=== PATIENT | male | born 1945 | race Caucasian/White ===

== ENCOUNTER → 2019-02-08 08:57 | Outpatient (CLI) | payer MEDICARE, OTHER, SELFPAY ==
--- NOTE | 2019-02-08 | DI.MRI.S_ITS ---
PROCEDURE: MR KNEE LT WO CON INDICATIONS: PAIN IN LEFT KNEE TECHNIQUE: Saeed-Nephew Visionaire protocol was performed. Noncontrast sagittal PD fast spin echo and T2 fast spin echo with fat saturation, sagittal 3-D FLASH with fat saturation; coronal T1 spin echo and PD fast spin echo with fat saturation, and axial PD fast spin echo with fat saturation through the knee. COMPARISON: [facility], CR, BONE LENGTH SCANOGRAM, 06/27/2011, 13:42. [facility], CR, XR KNEE ARTHRITIC SERIES BI, 01/30/2019, 8:27. FINDINGS: Image quality: Excellent. Menisci: Extensive circumferential tear involving the lateral meniscus with very little normal substance identified. There is extrusion of meniscal fragments and adjacent soft tissue edema. Medial meniscal tear involving the body and posterior horn with extension of abnormal signal to the undersurface. Cruciate ligaments: Anterior cruciate ligament not well visualized and likely ruptured although this may be a chronic finding. The posterior cruciate ligament appears intact Medial structures: The medial collateral ligament appears intact, although medially bowed. This may be related to medial compartment pathology. The posterior oblique ligament, semimembranosus tendon insertions, oblique popliteal ligament, and meniscocapsular junction appear intact. Visualized portions of the pes anserinus tendons appear normal. No abnormal bursal fluid. Lateral structures: The lateral collateral ligament, long and short heads of the biceps femoris tendon appear intact. The popliteus tendon appears normal; the popliteofibular ligament appears intact. The posterosuperior and anteroinferior popliteomeniscal fascicles appear intact. The arcuate and fabellofibular ligaments appear intact, on either side of the lateral inferior geniculate artery. Iliotibial band appears normal. Anterior structures: The quadriceps tendon intact. There is proximal and distal patellar tendinopathy, mild. Prepatellar and superficial infrapatellar subcutaneous edema/fluid. Patellar alignment is normal. No femoral trochlear dysplasia or ventral trochlear prominence. No edema in the infrapatellar fat pad. Bones and cartilage: No focal marrow contusion or discrete low signal fracture line. There is presumed prominent intraosseous ganglion cyst formation at the tibial eminence. Inferior to that, there is focal central medullary marrow signal changes, possibly related to bone infarct. It measures 2.4 x 1.7 cm on coronal image 18 series 9. This may be present as subtle sclerosis seen on the prior 06/27/11 radiograph although technically indeterminate and consider continued surveillance with dedicated knee radiographs. Within the medial compartment, diffuse partial-thickness loss and internal signal change of the femoral and tibial articular cartilage. There is extensive subchondral cystic change and marrow edema at the peripheral medial tibial plateau. Within the lateral compartment, full-thickness loss of the femoral and tibial articular cartilage. Within the patellofemoral compartment, diffuse partial-thickness loss and prominent surface fraying/fibrillation of the patellar and femoral trochlear cartilage. There is full thickness denudation overlying the median patellar ridge on image 11 series 6. Joint space: Large joint effusion. Perez cyst is noted measuring 3 cm in a cephalocaudad dimension. No definite intra-articular loose body identified. IMPRESSION: Extensive lateral meniscal tear, with extrusion of meniscal fragments and associated soft tissue edema. Medial meniscal undersurface tear involving the body and posterior horn. Rupture of anterior cruciate ligament although probably chronic finding. Severe degenerative joint disease, most pronounced in the lateral compartment where there is full-thickness articular cartilage loss. Extensive subchondral cystic change and marrow edema at the peripheral medial tibial plateau. Presumed bone infarct involving the proximal tibial plateau. Consider radiographic surveillance to document long-term stability. Although, this is a subtle finding not well-seen on the prior studies. Large joint effusion. Perez's cyst. Dictated by: Maurice Lange M.D. on 02/08/2019 at 10:48 Approved by: Maurice Lange M.D. on 02/08/2019 at 11:05
== END ==
PROVIDERS: Visit Provider Orthopaedic Surgery
DX: M25.562 Pain in left knee (principal); S83.282A Other tear of lateral meniscus, current injury, left knee, initial encounter; S83.242A Other tear of medial meniscus, current injury, left knee, initial encounter; S83.512A Sprain of anterior cruciate ligament of left knee, initial encounter; M17.12 Unilateral primary osteoarthritis, left knee; M25.462 Effusion, left knee; M71.22 Synovial cyst of popliteal space [Baker], left knee
CPT/HCPCS: 73721

== ENCOUNTER → 2019-06-17 11:42 | Outpatient (CLI) | payer MEDICARE, OTHER, SELFPAY ==
[2019-06-17 12:10] LABS: Hematocrit 42.9 % (41-53); Hemoglobin 14.2 g/dL (13.5-17.5); Mean Corpuscular HGB Conc 33.1 % (30-36); Mean Corpuscular Hemoglobin 29.1 PG (26-34); Mean Corpuscular Volume 87.7 fL (80-100); Platelet Count 206 X10^3/uL (150-400); Red Blood Cell Count 4.89 X10^6/uL (4.5-5.9); Red Cell Distribution Width 14.6 % (11.6-14.8); White Blood Cell Count 4.9 X10^3/uL (4.5-11.0)
[2019-06-17 12:25] LABS: Hemoglobin A1C% w Est Avg Glu 5.7 % (4.0-6.0)
[2019-06-17 12:36] LABS: BUN Creatinine Ratio 44.3 (6-22); Blood Urea Nitrogen 31 mg/dL (9-20); Carbon Dioxide 23 mmol/L (22-32); Chloride 109 mmol/L (98-107); Estimated Glomerular Filt Rate > 60.0 mL/min (>60); Glucose 129 mg/dL (80-110); HEMOLYSIS < 15 (0-50); Potassium 4.7 mmol/L (3.4-5.1); Sodium 141 mmol/L (137-145)
[2019-06-17 14:50] LABS: Bacteria Urine None Seen
[2019-06-17 15:25] LABS: Appearance Urine UA CLEAR; Bilirubin Urine UA NEGATIVE (NEGATIVE); Color Urine UA YELLOW; Glucose Urine UA NEGATIVE (Negative); Ketones Urine UA NEGATIVE (NEGATIVE); Leukocyte Esterase Urine UA NEGATIVE (NEGATIVE); Nitrite Urine UA NEGATIVE (Negative); Occult Blood Urine UA 1+ (Negative); Protein Urine UA NEGATIVE (Negative); Urobilinogen Urine UA 0.2 E.U./dL (0.2)
[2019-06-17 16:36] LABS: RBC Urine 0-1/HPF (0-5/HPF); Squamous Epithelial Cell Urine 0-1 /HPF (0-5/HPF); WBC Urine 0-1/HPF (0-5/HPF)
== END ==
PROVIDERS: Visit Provider Orthopaedic Surgery
DX: N39.0 Urinary tract infection, site not specified (principal); R73.9 Hyperglycemia, unspecified; Z01.818 Encounter for other preprocedural examination
CPT/HCPCS: 36415; 80048; 81001; 83036; 85027; 93005; 93010

== ENCOUNTER 2019-07-04 05:47 | Inpatient (IN) | payer MEDICARE, OTHER, SELFPAY ==
[2019-06-20 08:23] VITALS: BMI 31.2
[2019-07-04] VITALS (16 sets, daily range): BP systolic 105–147; BP diastolic 53–75; PULSE 43–68; RESP 12–20; TEMP 35.7–37.3; O2SAT 94–98; BMI 31.2; BMI 32.0
--- NOTE | 2019-07-04 06:00 | DI.RAD.S_ITS ---
PROCEDURE: XR KNEE LT 1TO2V INDICATIONS: POST OPERATIVE LEFT KNEE TECHNIQUE: 2 view(s) of the knee acquired. COMPARISON: None. FINDINGS: Bones: Patient is status post knee joint arthroplasty. Hardware components are in expected positions. Visualized bony structures are intact. Soft tissues: Overlying postoperative changes are noted. Surgical drain is noted in suprapatellar joint space. IMPRESSION: Post surgical changes from left total knee arthroplasty with anatomic left knee alignment. Dictated by: Cody Kwok M.D. on 07/04/2019 at 11:21 Approved by: Cody Kwok M.D. on 07/04/2019 at 11:22
[2019-07-04] MEDS: VANCOMYCIN 1,000 MG/200 ML PIGGYBACK 200 MG IV (07:00)
[2019-07-04] MEDS: LACTATED RINGERS 1,000 ML 42 ML IV ×2 (07:00→08:58)
[2019-07-04] MEDS: PREGABALIN 75 MG CAPSULE PO (07:04)
--- NOTE | 2019-07-04 07:36 | PM.PREOP ---
Pre-operative Note Interval Note History & Physical reviewed/Exam performed by Physician: Yes Changes to H&P: No
--- NOTE | 2019-07-04 07:40 | P.OP_ITS ---
Operative Date/Time/Diagnoses Date of procedure: 07/04/19 Time of procedure: 07:54 Pre-op diagnosis: left knee OA Post-op diagnosis: same Procedure & Clinicians Procedure: left total knee arthroplasty Same procedure as scheduled: Yes Indications: The patient has had progressively worsening left knee pain with radiographic changes consistent with arthritis. Non-operative management has failed and the patient has requested total knee replacement. The risks, benefits and alternatives to surgery were discussed with the patient prior to proceeding. Risks discussed included, but were not limited to, failure to relieve pain, stiffness, infection, nerve damage, deep venous thrombosis, pulmonary embolism, stroke, coma, heart attack, permanent paralysis and , as well as the potential need for eventual revision of the prosthetic. Surgeon: Carly Saeed Wet Room Worker: Suha Tolentino Anesthesia Type: General and Spinal Operative Notes Findings: Severe left knee osteoarthritis, good stability Closure Type: primary Specimen(s): none sent Prosthetic devices, grafts, tissues, transplants, or devices: Saeed and Nephew Ariannaney BCS 2 size 6 femur, size 6 tibia, +9 poly, 35 oval patella Applied: drain(s) Estimated Blood Loss (mL): 250 Blood products transfused: none Tourniquet time (min): 91 Procedure in detail: The patient was seen in the pre-operative area, where the patient identified the left knee as the operative site and this was marked with my initials. The patient received pre-operative antibiotics, and was taken to the operating room and placed on the operative table in the supine position. After satisfactory anesthesia, a real time operator out was performed. The left leg was encircled with a tourniquet about the proximal thigh, and the leg was prepared from the toes to the tourniquet with ChloroPrep in the usual fashion and draped through sterile drapes. The leg was elevated and exsanguinated with Eschmark bandage and the tourniquet inflated to [250] mmHg pressure. The knee was approached through an approximately 18 cm incision centered over the patella and carried into the knee through a medial parapatellar arthrotomy. A portion of the medial and lateral meniscus was resected. Soft tissue was carefully mobilized around the patella the patella was measured with a caliper. Bone was resected from the patella and the patellar height was reconstituted with up an appropriate sized patellar component. A cover was then placed on the patella. A small amount of additional medial and lateral meniscus was resected. The visionare guide fit well to the distal femur. It looked like an appropriate distal femoral cut and the cut was made without difficulty. The rotation was assessed and the appropriate size femoral guide was placed on the distal femur and finishing cuts were made. There was no evidence of notching. The anterior, posterior and chamfer cuts were then made. The posterior osteophytes and soft tissues were then removed. The posterior capsule was injected with part of a mixture of 60 ml 0.25% Marcaine mixed with 20 ml Exparel for post operative pain control. The remainder of this mixture was injected into the capsule and subcutaneous tissues during cement curing. The tibia was prepared and the visionaire guide fit well to the distal tibia. The rotation was assessed. The patient was placed in extension residual medial and lateral meniscus as well as any residual bone was carefully resected. [2mm] additional tibia was resected. Hemostasis was achieved especially posteriorly. Additional local was injected into the posterior capsule. The extension gap was assessed and additional releases for gap balancing were performed as necessary. It was checked with the gap roll or tape edge machine operator. The femoral component was trial was placed and the notch was finished. Trial tibial and femoral components were then placed and the knee placed through a range of motion. Range of motion was [0-120], with good stability throughout the range. The trials were then removed, and the tibia was finished. The bone was prepared with pulsatile lavage, and dried with a sponge. Cement was applied and the final prosthetics placed. Excess cement was removed during and after cement curing. A brief Betadine soak was performed. After confirming there was no extruded cement posteriorly, the final tibial insert was placed. The knee was copiously irrigated and the tourniquet deflated. Hemostasis was obtained with the Bovie. A drain was placed and brought out superolaterally. The capsule was closed with interrupted Vicryl suture. The subcutaneous layer was closed with barbed sutures, and the skin with a running 3-0 V-Lock suture and Surgical glue. An Aquacel Ag dressing was applied and the patient was taken to recovery having tolerated the procedure well. Complications: none Post-operative Condition: stable Disposition: Acute Care Plan for aftercare: The patient will be maintained on a standard total knee replacement protocol with weight bearing as tolerated. The patient will receive aspirin and sequential compression devices for DVT prophylaxis. The patient will be discharged home when safe for the home environment.
--- NOTE | 2019-07-04 07:46 | SUR.PREOP ---
INR ordered, dr richardson instructed not to be done.
[2019-07-04] MEDS: CEFAZOLIN 2 GM/100 ML FROZ.PIGGY IV ×3 (08:00→23:36)
--- NOTE | 2019-07-04 08:24 | SUR.OPER ---
Supine on padded OR bed. Pillow under head, arms secured on padded armboards <90 degree abduction. Safety belt across torso. Non-operative leg secured with tape over blanket over lower leg. Operative leg secured in DeMayo/Sabino positioner. Foam padded brace at thigh of operative leg.
[2019-07-04] MEDS: BUPIVACAINE 0.25% W/ EPI 30 ML VIAL 60 ML INJ (08:31)
[2019-07-04] MEDS: BUPIVACAINE LIPOSOME 266 MG/20 ML VIAL INJ (08:33)
--- NOTE | 2019-07-04 11:38 | SUR.PHASEI ---
Pt transferred to room 205 via bed with all belongings. Last vital signs stable and pain controlled prior to transfer; see flowsheet documentation for details.Report given to SEE Mosquera prior to transfer. Shelbi at bedside upon arrival to room 205; handoff assessment completed. SEE Mosquera to assume care of pt at this time.
[2019-07-04] MEDS: LACTATED RINGERS 1,000 ML 125 ML IV ×2 (12:15→22:26)
--- NOTE | 2019-07-04 12:30 | PC.NURSE ---
Patient brought from PACU via bed at 1138. Patient tolerated transfer well. Denies pain, SOB, at this time. Stating 97% on room air. Patient is communicative and easily awoken. Hemovac unclamped at 1230, draining and patent. LLE dsg is CDI, no swelling or redness noted. Distal pulses are faint but palpable. Denies further needs at this time. at bedside.
[2019-07-04] MEDS: ACETAMINOPHEN 325 MG TABLET 975 MG PO ×2 (14:39→20:05)
[2019-07-04] MEDS: ONDANSETRON 4 MG/2 ML INJ IV (14:40)
--- NOTE | 2019-07-04 15:04 | PT.IIE ---
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) Medical History (Last Updated 06/20/19 @ 08:54 by Erendira Gaspar RN) Arthritis (Acute) Chest pain (Acute) First degree AV block (Acute) GERD (gastroesophageal reflux disease) (Acute) H/O tooth extraction (Acute) HTN (hypertension) (Acute) Incomplete right bundle branch block (RBBB) (Acute) NSTEMI (non-ST elevated myocardial infarction) (Acute) Osteoarthritis (Acute) Pain (Acute) Postoperative atrial fibrillation (Acute) PSVT (paroxysmal supraventricular tachycardia) (Acute) Severe gum disease (Acute) Sinus bradycardia (Acute) TIA (transient ischemic attack) (Acute) Physical Therapy Inpatient Evaluation/Re-Eval M1 PT/OT-IP Prior Functional Status Start: 07/04/19 12:00 Freq: NEEDED Status: Active Protocol: Document 07/04/19 14:35 AW (Rec: 07/04/19 15:04 AW [id number]) Medical Review Prior Functional Status Medical History Reviewed Yes Diet/Fluid Consistency Regular Communication Able to make needs known Mobility and Gait Pt was independent with functional mobility. He needed no assistive device, had no limit to walking distance, and had no falls within the past year. Pt does admit his balance wasn't the best. Activities of Daily Living and IADL's Independent, including driving and gardening Social History Household Members spouse Living Arrangements House Number of Floors (Floors) Two Floors Number of Stairs To Enter/Railing? 3 SANDRA with R rail ascending. Home is split level. Once inside, pt must ascend 6 steps with left-side railing to access the upper level where he can stay as long as needed without need to access the lower level. Home Environment Standard Height Toilet,Walk in Shower Home Equipment Front Wheel Walker,Straight Cane,Manual Wheelchair Employment Status Retired Additional Social History Comment Pt lives with spouse who ambulates short distances and often depends on a manual wheelchair for mobility. His son and grandchild live in [place]. M2 PT-IP Current Condition Start: 07/04/19 12:00 Freq: NEEDED Status: Active Protocol: Document 07/04/19 14:35 AW (Rec: 07/04/19 15:04 AW [id number]) Physical Therapy Current Condition Current Condition Evaluation Date 07/04/19 Treatment Diagnosis s/p L TKA, difficulty in walking Onset Date 07/04/19 Weight Bearing Status Weight Bearing Status Weight Bear as Tolerated Allowed Weight Bearing Amount (enter % WBAT LLE with walker or #) (%) M3 PT-IP Subjective Start: 07/04/19 12:00 Freq: NEEDED Status: Active Protocol: Document 07/04/19 14:35 AW (Rec: 07/04/19 15:04 AW [id number]) Subjective Physical Therapy Visit Type Type Initial Evaluation Visit Start Time 13:52 Visit Stop Time 14:32 Total Visit Minutes 40 Notes Pt resting in room, visiting with spouse. Number of MANAGER USER EXPERIENCE Visits 0 Physical Therapy Visit Comments Patient Comments Pt is agreeable to mobilize with PT Patient Goals Pt would like to discharge home with spouse assist. Therapy Pain Assessment Pain When Pain Assessed During Mobility Pain Present Pain Present Pain Reported Location Left Knee Scale Used pt unable to quantify M4 PT-IP Mobility and Gait Start: 07/04/19 12:00 Freq: NEEDED Status: Active Protocol: Document 07/04/19 14:35 AW (Rec: 07/04/19 15:04 AW [id number]) PT-Bed Mobility Assessment Supine to Sit Supine to Sit Standby Assistance Scooting Scooting to Edge of Bed Standby Assistance PT-Transfer Assessment Sit to and From Stand Sit to and from Stand Minimal Assistance Equipment Transfer Assistive Device Gait Belt,Front Wheeled Walker Orthotic/Prosthetic Devices or Brace: No Transfers Transfer Destination Chair Transfer Technique pt ambulated using FWW Transfer Ability Level of Assist Minimal Assistance Comments Mobility Comments With pt sitting edge of bed, he attempted to stand without assist, resulting in a lateral loss of balance to his left, landing on the bed and requiring PT assist to recover . During this episode, wound vac line mid-line. RN was notified and she was able to reconnect the line with good drainage. Pt required min assist and verbal cues for sequencing to complete sit to stand. Gait Assessment Gait Gait Assistance Required: Contact Guard Assist Distance (Feet) 15 Able to Maintain Weight Bearing Status Yes During Gait Assistive Devices Assistive Device Gait Belt,Front Wheeled Walker Orthotic/Prosthetic Devices or Brace: No Gait Deviations General Gait Pattern Antalgic,Decreased Stride Length,Decreased Feet Clearance,Flexed Trunk,Step-to Gait Factors Limiting Gait Function Factors Limiting Gait Function Decreased Activity Tolerance, Decreased Strength,Pain,Poor Balance,Poor Safety Awareness Comments Gait Comments Pt ambulated ~15 feet in room using FWW CGA. PT-Balance Assessment Sitting Balance and Reactions Static Sitting Balance Ability Good Dynamic Sitting Balance Ability Fair Standing Balance and Reactions Static Standing Balance Ability Fair Dynamic Standing Balance Ability Fair Device Used FWW M5 PT-IP Objective Assessments Start: 07/04/19 12:00 Freq: NEEDED Status: Active Protocol: Document 07/04/19 14:35 AW (Rec: 07/04/19 15:04 AW [id number]) Orientation Orientation/Cognition Level of Alertness Alert Orientation Name,Date,Place,Situation Language Function Ability No Deficits Noted Safety Awareness Understands Safety Issues Memory Description No Deficits Noted Gross Range of Motion Upper Extremity ROM Assessment Within Functional Limits Lower Extremity ROM Assessment Left Impaired Strength Upper Extremity Strength Assessment Within Functional Limits Lower Extremity Strength Assessment Left Impaired Coordination Assessment Gross Coordination Gross Coordination WNL Sensation Assessment Sensation Gross Sensation WNL Comments Sensation Comments Pt identified light touch ochoa points on both LE's with no difference side to side Muscle Tone Muscle Tone WNL Yes M6 PT-IP Treatment Start: 07/04/19 12:00 Freq: NEEDED Status: Active Protocol: Document 07/04/19 14:35 AW (Rec: 07/04/19 15:04 AW [id number]) Physical Therapy Treatment Exercises Exercises Ankle Pumps,Quad Sets,Passive Knee Extension Hang Education Education Provided Precautions,Weight Bearing Status,Post-Op Packet,Safety M7 PT-IP Assessment and Plan Start: 07/04/19 12:00 Freq: NEEDED Status: Active Protocol: Document 07/04/19 14:35 AW (Rec: 07/04/19 15:04 AW [id number]) PT Summary Assessment and Plan Potential Rehabilitation Potential Good Status of Condition at Evaluation Evolving Summary Impairments Pain,ROM,Strength,Balance,Bed Mobility,Transfers,Gait, Activity Tolerance Assessment Summary Pt is a 73 yo man with history of NSTEMI and CABG who was seen for PT eval on POD0 following L TKA. PLOF: Patient reports he was independent with all functional mobility and ADL's but that his balance wasn't the best. He reports no falls in the past year. He lives with his who ambulates short distances and uses a manual wheelchair for longer distance mobility. CLOF : Pt found resting in bed, agreeable to participate with PT. Pt exhibited impulsivity, attempting to transfer without assist. He required SBA for bed mobility, min assist to transfer, and CGA for ambulation with FWW. Given pt' s level of debility compared with PLOF, he may benefit from SNF rehab before anticipated return to home. However, pt's function could drastically improve on POD1, so PT will continue to assess. Pt left reclined in bedside chair with ice pack on left knee, BP cuff and oximeter in place, and call light within reach. He was educated to use the call light for all mobility needs. Goals Bed Mobility Goal Independent Transfer Goal Standby Assistance Gait Goal Standby Assistance Gait Distance 100 Other Goals up/down 6 steps with L-side railing SBA. Frequency of Treatment Frequency Of Treatment Twice a Day Treatment Plan Physical Therapy Treatment Plan Bed Mobility Training,Transfer Training,Gait Training, Therapeutic Exercise,Balance Retraining,Post Op Education, Discharge Planning,Hot or Cold Pack,Neuromuscular Re-ed, Coordination Retraining,Manual Therapy Recommendations To Nursing Amount of Assist Needed 1 Person Assist Discharge Recommendations PT Discharge Recommendations Home with Assistance,SNF Rehab ,Outpatient PT Other Discharge Recommendations SNF rehab vs home with assist + outpatient PT. Will continue to assess.
--- NOTE | 2019-07-04 15:18 | CM.DPNOTE ---
DCP assessment note: initiated. Case receive this morning and discussed briefly in Team Rounds. Pt was in surgery for planned knee surgery. INPT admission status has now been confirmed by UR RN Miriam. Discussed caseload triage with assistant center manager Mya this afternoon. She and her cad intern plan to see pt and his tomorrow to continue the full assessment process and look at the d/c plan issues and options.
[2019-07-04] MEDS: OXYCODONE IR 5 MG TABLET PO (20:06)
[2019-07-04] MEDS: METOPROLOL IR 50 MG TABLET PO (20:06)
[2019-07-04] MEDS: ATORVASTATIN 20 MG TABLET 80 MG PO (20:06)
[2019-07-04] MEDS: DOCUSATE 100 MG CAPSULE PO (20:07)
[2019-07-04] MEDS: ASPIRIN EC 81 MG TABLET PO (20:07)
[2019-07-04] MEDS: OXYCODONE IR 10 MG TABLET PO (23:36)
--- NOTE | 2019-07-05 00:03 | PC.NURSE ---
Addendum entered by Paige Edwards R.N. 07/05/19 07:06: When checked on, patient lying quietly with no indication of pain but when asked states pain is not any better; still 6/10 if not worse. Addendum entered by Paige Edwards R.N. 07/05/19 05:55: 0530 Was up in chair and now wanting to go back to bed. Seems to be a great deal of pain and states Oxycodone given earlier really didn't help the pain much and rates severity now as 6/10. While ambulating around bed, became nauseated and vomited on floor + 50cc in blue emesis bag; undigested food. Able to get back to bed and now lying down. States no longer nauseated but agreeable to taking Zofran prior to pain medication. After Zofran administered was medicated with Oxycodone, leg elevated on pillow and ice pack applied. Addendum entered by Paige Edwards R.N. 07/05/19 02:42: Patient states pain is currently 6/10 so medicated with 10mg Oxycodone. Original Note: Patient is alert and oriented although anxious with many questions regarding what is normal following knee surgery. Breath sounds CTA with RA sat of 95%. HRR. Complains of queasy feeling but denies true nausea and did not want any antiemetic. BT present and is passing flatus. Voiding without dysuria, frequency or urgency. Needing assistance to reposition due to increased pain in left knee. Does get up to bathroom with walker and 1 assist. Pain is currently 8/10 so medicated with 10mg Oxycodone, repositioned and ice pack applied to knee. Aquacel dressing + risa wrap to left LE is CDI. Hemovac is intact and compressed. CMS intact. Does have non pitting edema in bilateral ankles (chronic) left > right. Wearing bilateral SCD's. Fall risk score is moderate; bed alarm is activated for safety. rooming in.
[2019-07-05] MEDS: OXYCODONE IR 10 MG TABLET PO ×2 (02:40→05:46)
[2019-07-05 03:45] VITALS: BP 118/62; PULSE 72; RESP 19; TEMP 37.1; O2SAT 95
[2019-07-05] MEDS: ONDANSETRON 4 MG/2 ML INJ IV (05:41)
[2019-07-05] MEDS: LACTATED RINGERS 1,000 ML 125 ML IV (07:05)
[2019-07-05 07:52] LABS: Hematocrit 37.8 % (41-53); Hemoglobin 12.5 g/dL (13.5-17.5)
--- NOTE | 2019-07-05 08:43 | PM.PNPO.1 ---
Subjective Subjective Date Patient Seen: 07/05/19 Time Patient Seen: 08:43 Interval history: Patient is POD#1 s/p left TKA by Dr. Saeed. He had good control of pain yesterday and mobilized with PT but pain control deteriorated overnight. He has been taking Oxycodone and scheduled Tylenol with little to no pain relief. He had episode of nausea and emesis yesterday which has improved. No chest pain or shortness of breath. Exam Vital Signs (past 8 hours): - 07/05/19 03:45 Temperature 98.7 F Pulse Rate 72 Respiratory Rate 19 Blood Pressure 118/62 Pulse Oximetry 95 Fraction of Inspired Oxygen 21 Oxygen Delivery Method Room Air Oxygen Flow Rate 0 Narrative Exam Narrative: 73 year old male resting in bed. Alert and oriented in no acute distress. Dressing in place over left knee is CDI. Able to flex/extend the ankle. Palpable pedal pulse. Sensation intact to light touch. Calves soft, compressible. Objective Labs Result Diagrams: 07/05/19 06:48 Labs: Laboratory Results - last 24 hr 07/05/19 06:48 Hgb 12.5 L Hct 37.8 L Assessment & Plan Post-op Postoperative Procedures: Procedures Operation Date: 07/04/19 07:45 Actual Procedures Side Surgeon p Total Knee Arthroplasty Left Carly Zulma Saeed MD Plan for today will include improved pain control. Dilaudid 2mg added along with Ketorolac 30mg Q6hrs. He is to continue ASA for DVT prophylaxis. Mobilize with PT today. His is partially wheelchair dependent and he lacks other post operative care so will likely require home health assistance vs SNF rehab.
[2019-07-05 09:00] VITALS: BP 109/54; PULSE 64; RESP 18; TEMP 36.9; O2SAT 92
[2019-07-05] MEDS: ACETAMINOPHEN 325 MG TABLET 975 MG PO ×3 (09:09→21:04)
[2019-07-05] MEDS: FERROUS SULFATE 325 MG TABLET PO (09:09)
[2019-07-05] MEDS: ASPIRIN EC 81 MG TABLET PO ×2 (09:09→21:04)
[2019-07-05] MEDS: METOPROLOL IR 50 MG TABLET PO ×2 (09:09→21:04)
[2019-07-05] MEDS: LISINOPRIL 5 MG TABLET PO (09:10)
[2019-07-05] MEDS: DOCUSATE 100 MG CAPSULE PO ×2 (09:10→21:04)
--- NOTE | 2019-07-05 09:14 | CM.DANOTE ---
DCP: assessment: case received, EMR reviewed. Discussed in Team Rounds. Pt is an 73 year old male who admitted after L knee replacement surgery Admission status: OBS: per UR SEE Pineda Payer: Medicare and Medicaid. Pt isA7) x 4 with at BS. long time resident of [place]. with son/granddaughter in [place] Consulting: [place] Surgeon team: Plan discussed in Team Round: d/c home when adequate pain relief can be established Will check in forpossible pain relief.
[2019-07-05] MEDS: HYDROMORPHONE 2 MG TABLET PO (09:15)
--- NOTE | 2019-07-05 09:35 | PC.NURSE ---
AM shift pt AO and receptive to care. Left PIC infusing LR at 125/hr. Continuing fluids until up and ambulating has increased. pt still having pain control issues. Reported 7/10 pain with 10mg Oxycodone throughout NOC shift. PA ordered Dilaudid 2mg PO and Toradol to start this AM in hopes to gain better pain control. Hemovac compressed. Mild non-pitting swelling to LLE. SCD's on in bed. Using urinal in bed. Denying nausea. Refused PT this AM due to pain (I told PT I just administered 2mg Dilaudid and he will need to get up, PT Kvng stated he will come back).
--- NOTE | 2019-07-05 11:06 | CM.DPC ---
DCP: continued: Case received and discussed in Team Rounds, noted the plan for home with spouse and OUTPT when stable for same. Checked in now with pt and his Valarie, at bedside. Notes her w/c/walker combination. She reports that she uses this when she goes out and it's set up so that my can push it easily. Spoke with ortho ASHIA Borden who is here rounding and had just seen pt and his . She noted she was not sending pt home today and that she thought the plan for home with was not going to be doable. She said if pt was not open to a snf setting at the very least she would sent him with HHS. Discussed ? of OT order as this may help pt and his see more readily what they may face at home. Suha agreed and states will order same. Valarie does say Yesterday he did so well with PT, I thought he would be fine to go. Today he has alot more pain.. Pt very much agrees and is notably groggy from the medication he is on currently. Pt does say he has a son who lives 10 miles away who can pick him up. Asked who would take him to OUTPT PT, planned at [facility] PT but no appt set yet. He said that his would and that his son was not available for this. He said his could not help him get in the car but I thought I wouldn't have any trouble with this. Areas of concern noted in this visit: Pt has stairs, 2 steps to enter with rail and then 6 steps to get to main level of home/bilateral rails. Pt will do stairs and caregiver training with PT Kvng today. Valarie admits that it will be challenging to help her with this if he cannot do it himself. Both at this time say that other than a ride home they do not have anyone lined up to assist other than Valarie. Pt had a stay at [facility] in January 2018 after a Cardiac Bypass surgery. He does not want to consider another snf stay at this time. Valarie does say that my does not get around real well as his back can go out easily. He uses both knees to brace himself when he gets up and down. Discussed HH options and agency choice list. They are not sure they want this. Will discuss further. Suha is updated, says she will be on this weekend and will continue to work with DCP team and pt on a safe discharge plan. She noted that since medication post surgery has worn off pt thus far is not progressing well. DCP team will be following. OF note: Payer: Medicare and [facility]. INPT admission status: confirmed by UR SEE Pineda. He does have options for SNF and HH but as noted will need to be open to same.
[2019-07-05 12:02] VITALS: BP 101/61; PULSE 61; RESP 20; TEMP 36.2; O2SAT 93
--- NOTE | 2019-07-05 12:04 | PT.IPTN ---
Addendum entered by Ilda Putnam LPN 07/05/19 13:04: Was updated by PT Kvng after his session with pt and his that his recommendation was snf rehab, that they were now agreeable to this and wanted a facility other than [facility]. Went now to room in followup. Both said they did not quite understand this, they had not had any time to think about it and were not ready to make any decisions or even discuss snf as a Plan B. Pt did say he thought that he might do much better after he has better pain control and that he already was feeling much better. Plan at this point remains home setting. Options are HHS vs SNF but pt and his are focused on the home plan and are correct that he may improve greatly each day. Pt would not be eligible for a Medicare SNF stay until Saturday 07/07.....DCP team will follow closely. Original Note: Current Diagnoses Unilateral primary osteoarthritis, left knee (07/04/19) Surgery Performed Operation Date: 07/04/19 07:45 Actual Procedures p Total Knee Arthroplasty(Left) - Carly Saeed MD Physical Therapy Treatment Note M2 PT-IP Current Condition Start: 07/04/19 12:00 Freq: NEEDED Status: Active Protocol: Document 07/04/19 14:35 AW (Rec: 07/04/19 15:04 AW [id number]) Physical Therapy Current Condition Current Condition Evaluation Date 07/04/19 Treatment Diagnosis s/p L TKA, difficulty in walking Onset Date 07/04/19 Weight Bearing Status Weight Bearing Status Weight Bear as Tolerated Allowed Weight Bearing Amount (enter % WBAT LLE with walker or #) (%) M3 PT-IP Subjective Start: 07/04/19 12:00 Freq: NEEDED Status: Active Protocol: Document 07/05/19 11:10 HH (Rec: 07/05/19 12:04 HH [id number]) Subjective Physical Therapy Visit Type Type Treatment Note Visit Start Time 11:10 Visit Stop Time 11:40 Total Visit Minutes 30 Physical Therapy Visit Comments Patient Comments Pt is agreeable to mobilize with PT Therapy Pain Assessment Pain When Pain Assessed During Mobility Pain Present Pain Present Pain Reported Location Left Knee Intensity 7 Scale Used Numeric (1 - 10) Description Acute Pain Behaviors Calling Out Pain Management Techniques Apply Cold,Modification of Treatment,Timing of Activity with Medications M4 PT-IP Mobility and Gait Start: 07/04/19 12:00 Freq: NEEDED Status: Active Protocol: Document 07/05/19 11:10 HH (Rec: 07/05/19 12:04 HH [id number]) PT-Bed Mobility Assessment Supine to Sit Supine to Sit Contact Guard Assistance, Bedrails Scooting Scooting to Edge of Bed Contact Guard Assistance Scooting Up and Down in Bed Contact Guard Assistance PT-Transfer Assessment Sit to and From Stand Sit to and from Stand Minimal Assistance,Use of Upper Extremities Equipment Transfer Assistive Device Gait Belt,Front Wheeled Walker Orthotic/Prosthetic Devices or Brace: No Transfers Transfer Destination Bed,Chair Transfer Technique pt ambulated using FWW Transfer Ability Level of Assist Minimal Assistance Comments Mobility Comments Pt has significant difficulty for bed mobility especially pivoting his L knee. Educated pt to perform supine to long sit and use a belt to pivot L LE. Pt did it with CGA but slowly. He also has a hard time scooting towards EOB due to limited knee flexion. Pt was only able to reach 60 degrees knee flexion. He needed min A for STS and transfers by using a stagger stance. He then amb to the hallway for approx 60 feet with CGA. Pt requested to return to chair due to L LE fatigue and pain. Gait Assessment Gait Gait Assistance Required: Contact Guard Assist Distance (Feet) 60 Able to Maintain Weight Bearing Status Yes During Gait Assistive Devices Assistive Device Gait Belt,Front Wheeled Walker Orthotic/Prosthetic Devices or Brace: No Gait Deviations General Gait Pattern Antalgic,Decreased Stride Length,Decreased Feet Clearance,Flexed Trunk,Step-to Gait Factors Limiting Gait Function Factors Limiting Gait Function Decreased Activity Tolerance, Decreased Strength,Pain,Poor Balance,Poor Safety Awareness Comments Gait Comments Pt cont has significant antalgic gait with step to pattern due to pain. He primarily WB through his UEs and R LE. Stair Climbing Assessment Comments Stair Climbing Comments unable to assess PT-Balance Assessment Sitting Balance and Reactions Static Sitting Balance Ability Good Dynamic Sitting Balance Ability Fair Standing Balance and Reactions Static Standing Balance Ability Fair Dynamic Standing Balance Ability Fair Device Used FWW M5 PT-IP Objective Assessments Start: 07/04/19 12:00 Freq: NEEDED Status: Active Protocol: Document 07/04/19 14:35 AW (Rec: 07/04/19 15:04 AW [id number]) Orientation Orientation/Cognition Level of Alertness Alert Orientation Name,Date,Place,Situation Language Function Ability No Deficits Noted Safety Awareness Understands Safety Issues Memory Description No Deficits Noted Gross Range of Motion Upper Extremity ROM Assessment Within Functional Limits Lower Extremity ROM Assessment Left Impaired Strength Upper Extremity Strength Assessment Within Functional Limits Lower Extremity Strength Assessment Left Impaired Coordination Assessment Gross Coordination Gross Coordination WNL Sensation Assessment Sensation Gross Sensation WNL Comments Sensation Comments Pt identified light touch ochoa points on both LE's with no difference side to side Muscle Tone Muscle Tone WNL Yes M6 PT-IP Treatment Start: 07/04/19 12:00 Freq: NEEDED Status: Active Protocol: Document 07/04/19 14:35 AW (Rec: 07/04/19 15:04 AW [id number]) Physical Therapy Treatment Exercises Exercises Ankle Pumps,Quad Sets,Passive Knee Extension Hang Education Education Provided Precautions,Weight Bearing Status,Post-Op Packet,Safety M7 PT-IP Assessment and Plan Start: 07/04/19 12:00 Freq: NEEDED Status: Active Protocol: Document 07/05/19 11:10 HH (Rec: 07/05/19 12:04 HH [id number]) PT Summary Assessment and Plan Potential Rehabilitation Potential Good Status of Condition at Evaluation Evolving Summary Impairments Pain,ROM,Strength,Balance,Bed Mobility,Transfers,Gait, Activity Tolerance Assessment Summary Pt has significant difficulty for bed mobility and needed min A for transfers and CGA for amb. He was overall relatively slow due to significant pain and limited knee flexion (only 60 degrees) . Pt also has a total of 9-10 steps to get on 2nd level which creates high fall risk for him at this point. Pt's spouse also has limited mobility that she might not be able to assist pt as needed. Discussed with pt about my SNF recommendation and they both are more opened to it at this point but requested not to go [facility] in [place]. Notified NEIL Gonsales as well. Goals Bed Mobility Goal Independent Transfer Goal Standby Assistance Gait Goal Standby Assistance Gait Distance 100 Other Goals up/down 6 steps with L-side railing SBA. Frequency of Treatment Frequency Of Treatment Twice a Day Treatment Plan Physical Therapy Treatment Plan Bed Mobility Training,Transfer Training,Gait Training, Therapeutic Exercise,Balance Retraining,Post Op Education, Discharge Planning,Hot or Cold Pack,Neuromuscular Re-ed, Coordination Retraining,Manual Therapy Recommendations To Nursing Amount of Assist Needed 1 Person Assist Discharge Recommendations PT Discharge Recommendations SNF Rehab
[2019-07-05] MEDS: KETOROLAC 30 MG/ML VIAL IV ×2 (13:49→18:51)
[2019-07-05] MEDS: HYDROMORPHONE 2 MG TABLET 4 MG PO ×2 (13:50→18:51)
--- NOTE | 2019-07-05 16:27 | OT.IP.EVAL ---
Current Diagnoses Unilateral primary osteoarthritis, left knee (07/04/19) Surgery Performed Operation Date: 07/04/19 07:45 Actual Procedures p Total Knee Arthroplasty(Left) - Carly Saeed MD Past Medical History (Last Updated 06/20/19 @ 08:54 by Erendira Gaspar, RN) Arthritis (Acute) Chest pain (Acute) First degree AV block (Acute) GERD (gastroesophageal reflux disease) (Acute) H/O tooth extraction (Acute) HTN (hypertension) (Acute) Incomplete right bundle branch block (RBBB) (Acute) NSTEMI (non-ST elevated myocardial infarction) (Acute) Osteoarthritis (Acute) Pain (Acute) Postoperative atrial fibrillation (Acute) PSVT (paroxysmal supraventricular tachycardia) (Acute) Severe gum disease (Acute) Sinus bradycardia (Acute) TIA (transient ischemic attack) (Acute) Surgical History (Last Updated 06/20/19 @ 08:54 by Erendira Gaspar RN) History of colonoscopy (Acute) Hx of arthroscopy of left knee (Acute) Hx of arthroscopy of right knee (Acute 06/06/96) Hx of heart artery stent (Acute 04/16/12) 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 He needed no assistive device, had no limit to walking distance, and had no falls within the past year. Pt does admit his balance wasn't the best. Activities of Daily Living and IADL's Independent, including driving and gardening Social History Household Members spouse Living Arrangements House Number of Floors (Floors) Two Floors Number of Stairs To Enter/Railing? 3 steps to enter the home then 6 steps up to the main part of the house. Railing on R assending. Home Environment Standard Height Toilet,Walk in Shower Home Equipment Front Wheel Walker,Straight Cane,Shower Seat with Backrest Employment Status Retired M2 OT-IP Current Condition Start: 07/05/19 16:06 Freq: Status: Active Protocol: Document 07/05/19 16:08 CGR (Rec: 07/05/19 16:27 CGR [id number]) Occupational Therapy Current Condition Current Condition Evaluation Date 07/05/19 Treatment Diagnosis L TKA Diagnosis Onset Date 07/04/19 Weight Bearing Status Weight Bearing Status Full Weight Bearing M3 OT- IP Subjective and Pain Start: 07/05/19 16:06 Freq: Status: Active Protocol: Document 07/05/19 16:08 CGR (Rec: 07/05/19 16:27 CGR [id number]) OT- Subjective Occupational Therapy Visit Type Type Initial Evaluation Visit Start Time 13:50 Visit Stop Time 14:44 Total Visit Minutes 54 OT Pain Assessment Pain When Pain Assessed At Rest Pain Present Pain Present Pain Reported Location Left Knee Intensity 6 Scale Used Numeric (1 - 10) Management Techniques Modification of Treatment M4 OT- IP ADL's Start: 07/05/19 16:06 Freq: Status: Active Protocol: Document 07/05/19 16:08 CGR (Rec: 07/05/19 16:27 CGR [id number]) OT [id number] Comments OT Self-Feeding Comments Not meal time OT ADL-Grooming General Evaluation Grooming Ability Standby Assistance Areas Needing Assistance Retrieving/Set-up of Grooming Items Comments OT Grooming Comments washing hands OT ADL-Oral Care Comments Oral Care Comments Pt declined, states he already performed. OT ADL-Dressing General Eval Upper Body Dressing Ability Independent Lower Body Dressing Ability Standby Assistance Areas Needing Assistance Underpants/Brief,Pants/Shorts, Socks Assistive Devices Dressing Assistive Devices Long Handled Shoe Horn,Manager Creative ,Sock Aid Comments OT Dressing Comments Pt educated on hip kit and performed donning socks to BLE with the use of the sock aid and solar manager. OT ADL-Toileting General Evaluation Toileting Ability Standby Assistance Devices Toileting Assistive Devices Grab Bars Comments OT Toileting Comments Standing at toilet, educated on pushing walker over the toilet for safety with standing toileting. OT ADL-Bathing Comments OT Bathing Comments Not performed on this date. M5 OT- IP IADL's Start: 07/05/19 16:06 Freq: Status: Active Protocol: Document 07/05/19 16:08 CGR (Rec: 07/05/19 16:27 CGR [id number]) OT-Instrumental Activities of Daily Living Deficits IADL Deficits Identified No Deficits Home Safety Awareness Awareness of Need for Assistance at Home Good Awareness Ability to Problem Solve Emergency Able to Problem Solve Situations Medication Management Medication Management No Deficits Identified Money Management Money Management No Deficits Identified Meal Preparation Meal Preparation No Deficits Identified Email Marketing Assistant Email Marketing Assistant No Deficits Identified Driving Driving Comments plans to drive short distances to therapy. Pt has family that will drive longer distances. M6 OT- IP Functional Cognition Start: 07/05/19 16:06 Freq: Status: Active Protocol: Document 07/05/19 16:08 CGR (Rec: 07/05/19 16:27 CGR [id number]) Cognitive Factors Limiting Selfcare Function Cognitive Ability Level of Alertness Alert Patient Orientation Name,Age,Birthday,Month,Date, Year,Day of Week,Place, Situation Attention Span Ability Capable of Focused Attention, Capable of Sustained Attention Ability to Follow Commands Able to Follow Multi-Step Commands Memory Description No Deficits Noted Safety Awareness No Deficits Noted Problem Solving Ability No deficits Noted Executive Function Ability No Deficits Noted Abstract Thinking Ability No Deficits Noted OT- Vision and Hearing OT- Hearing Assessment OT- Hearing Assessment WFL OT- Vision Assessment Visual Acuity WFL,Glasses For Reading Visual Attentiveness WFL Occular Pursuits WFL Visual Convergence WFL Visual [place] WFL M7 OT- IP Mobility and Balance Start: 07/05/19 16:06 Freq: Status: Active Protocol: Document 07/05/19 16:08 CGR (Rec: 07/05/19 16:27 CGR [id number]) OT- Bed Mobility Assessment Supine to Sit Supine to Sit Assist Standby Assistance Scooting Scooting to Edge of Bed Standby Assistance OT-Transfer Assessment Sit to and From Stand Sit to and from Stand Standby Assistance Transfers Transfer Ability Contact Guard Assistance Technique Transfer Destination Bed,Chair,Toilet Transfer Technique Stand Step Pivot Devices Transfer Assistive Devices Gait Belt,Front Wheeled Walker Comments Mobility Comments Mobility around the room. OT- Gait Assessment Gait Gait Assistance Required: Contact Guard Assist Assistive Devices Assistive Device Gait Belt,Front Wheeled Walker Comments Gait Ability Comments Mobility around the room. OT- Balance Assessment Sitting Balance and Reactions Static Sitting Balance Ability Normal Dynamic Sitting Balance Ability Good Standing Balance and Reactions Static Standing Balance Ability Good Dynamic Standing Balance Ability Fair M8 OT- IP Objective Assessments Start: 07/05/19 16:06 Freq: Status: Active Protocol: Document 07/05/19 16:08 CGR (Rec: 07/05/19 16:27 CGR [id number]) OT Gross Range of Motion Upper Extremity Range of Motion Assessment Within Functional Limits OT Strength Upper Extremity Strength Assessment Within Functional Limits Comments Strength Comments Grossly 4/5 OT- Coordination Assessment Upper Extremity Finger to Nose Test Within Functional Limits Finger Tapping Test Within Functional Limits OT-Muscle Tone Assessment Muscle Tone WNL Yes OT Sensation Assessment Comments Summary Comments Typical sensation. Edema Edema Absent M9 OT- IP Assessment and Plan Start: 07/05/19 16:06 Freq: Status: Active Protocol: Document 07/05/19 16:08 CGR (Rec: 07/05/19 16:27 CGR [id number]) OT Summary Assessment and Plan Potential Rehabilitation Potential Excellent Analytic Complexity at Evaluation Low Summary OT Impairments Pain,Range of Motion, Functional Mobility,Grooming, Dressing,Toileting,Bathing, Toilet Transfers,Shower Transfers Progress Towards Goals Progressing Toward Goals Assessment Summary Pt presents as a low complexity evaluation. Pt is moving well s/p sx and will benefit from 1-2 more OT sessions to address bathing and home safety. Recommend d/c home with family. Goals Grooming Goal Independent Dressing Goal Independent,Manager Creative,Sock Aid Toileting Goal Independent Bathing Goal Independent Toilet Transfer Goal Independent Shower Transfer Goal Independent,Shower Chair Days to Meet Goals 2 Frequency of Treatment Frequency Of Treatment Once a Day Treatment Plan OT Treatment Plan ADL Training,Functional Mobility,Patient/Family Education,Discharge Planning Other Treatment Recommendations and Next Shower. Treatment Focus Discharge Recommendations OT Discharge Recommendations Home Home Equipment Needs Pt provided with hip kit
[2019-07-05 16:32] VITALS: BP 97/57; PULSE 55; RESP 20; TEMP 36.1; O2SAT 94
--- NOTE | 2019-07-05 16:32 | PT.IPTN ---
Current Diagnoses Unilateral primary osteoarthritis, left knee (07/04/19) Surgery Performed Operation Date: 07/04/19 07:45 Actual Procedures p Total Knee Arthroplasty(Left) - Carly Saeed MD Physical Therapy Treatment Note M2 PT-IP Current Condition Start: 07/04/19 12:00 Freq: NEEDED Status: Active Protocol: Document 07/04/19 14:35 AW (Rec: 07/04/19 15:04 AW [id number]) Physical Therapy Current Condition Current Condition Evaluation Date 07/04/19 Treatment Diagnosis s/p L TKA, difficulty in walking Onset Date 07/04/19 Weight Bearing Status Weight Bearing Status Weight Bear as Tolerated Allowed Weight Bearing Amount (enter % WBAT LLE with walker or #) (%) M3 PT-IP Subjective Start: 07/04/19 12:00 Freq: NEEDED Status: Active Protocol: Document 07/05/19 15:38 LJ (Rec: 07/05/19 16:32 LJ [email or web address]) Subjective Physical Therapy Visit Type Type Treatment Note Visit Start Time 15:38 Visit Stop Time 16:03 Total Visit Minutes 25 Physical Therapy Visit Comments Patient Comments Pt willing to get up and walk. Therapy Pain Assessment Pain When Pain Assessed During Mobility Pain Present Pain Present Pain Reported M4 PT-IP Mobility and Gait Start: 07/04/19 12:00 Freq: NEEDED Status: Active Protocol: Document 07/05/19 15:38 LJ (Rec: 07/05/19 16:32 LJ [email or web address]) PT-Bed Mobility Assessment Supine to Sit Supine to Sit Contact Guard Assistance Scooting Scooting to Edge of Bed Standby Assistance Scooting Up and Down in Bed Standby Assistance PT-Transfer Assessment Sit to and From Stand Sit to and from Stand Standby Assistance,Use of Upper Extremities Equipment Transfer Assistive Device Gait Belt,Front Wheeled Walker Orthotic/Prosthetic Devices or Brace: No Transfers Transfer Destination Bed,Chair Transfer Technique pt ambulated using FWW Transfer Ability Level of Assist Standby Assistance,Use of Upper Extremities Comments Mobility Comments Pt much improved with bed mobility and transfers. He did not use bedrails and was able to get to the side of the bed without assist rather than initially assisting with moving LE. Gait Assessment Gait Gait Assistance Required: Contact Guard Assist Distance (Feet) 220 Able to Maintain Weight Bearing Status Yes During Gait Assistive Devices Assistive Device Gait Belt,Front Wheeled Walker Orthotic/Prosthetic Devices or Brace: No Gait Deviations General Gait Pattern Antalgic,Decreased Stride Length,Decreased Feet Clearance,Flexed Trunk,Step-to Gait Factors Limiting Gait Function Factors Limiting Gait Function Decreased Activity Tolerance, Decreased Strength,Pain,Poor Balance,Poor Safety Awareness Comments Gait Comments Pt gait has improved as has his use of the FWW. Still antalgic but improving with ROM and step length. Stair Climbing Assessment Evaluation Level of Assist On Stairs Contact Guard Assistance Devices Stair Climbing Assistive Devices Left Railing,Right Railing Technique/Endurance Stair Climbing Direction Ascend and Descend Stair Climbing Technique Step to Step Number of Steps Climbed 3 Stair Climbing Set # Repetitions (reps) 1 Comments Stair Climbing Comments Pt just wanting to try the stairs to see how he would have to get into his house. Pt was steady and had no c/o of increased pain. M5 PT-IP Objective Assessments Start: 07/04/19 12:00 Freq: NEEDED Status: Active Protocol: Document 07/04/19 14:35 AW (Rec: 07/04/19 15:04 AW [id number]) Orientation Orientation/Cognition Level of Alertness Alert Orientation Name,Date,Place,Situation Language Function Ability No Deficits Noted Safety Awareness Understands Safety Issues Memory Description No Deficits Noted Gross Range of Motion Upper Extremity ROM Assessment Within Functional Limits Lower Extremity ROM Assessment Left Impaired Strength Upper Extremity Strength Assessment Within Functional Limits Lower Extremity Strength Assessment Left Impaired Coordination Assessment Gross Coordination Gross Coordination WNL Sensation Assessment Sensation Gross Sensation WNL Comments Sensation Comments Pt identified light touch ochoa points on both LE's with no difference side to side Muscle Tone Muscle Tone WNL Yes M6 PT-IP Treatment Start: 07/04/19 12:00 Freq: NEEDED Status: Active Protocol: Document 07/05/19 15:38 LJ (Rec: 07/05/19 16:32 LJ [email or web address]) Physical Therapy Treatment Exercises Exercises Ankle Pumps,Gluteal Sets,Quad Sets,Heel Slides,Short Arc Quads Education Education Provided Safety M7 PT-IP Assessment and Plan Start: 07/04/19 12:00 Freq: NEEDED Status: Active Protocol: Document 07/05/19 15:38 LJ (Rec: 07/05/19 16:32 LJ [email or web address]) PT Summary Assessment and Plan Summary Impairments Pain,ROM,Strength,Balance,Bed Mobility,Transfers,Gait, Activity Tolerance Assessment Summary Pt has significant difficulty for bed mobility and needed min A for transfers and CGA for amb. He was overall relatively slow due to significant pain and limited knee flexion (only 60 degrees) . Pt also has a total of 9-10 steps to get on 2nd level which creates high fall risk for him at this point. Pt's spouse also has limited mobility that she might not be able to assist pt as needed. Discussed with pt about my SNF recommendation and they both are more opened to it at this point but requested not to go [facility]. Notified NEIL Gonsales as well. Goals Bed Mobility Goal Independent Transfer Goal Standby Assistance Gait Goal Standby Assistance Gait Distance 100 Other Goals up/down 6 steps with L-side railing SBA. Frequency of Treatment Frequency Of Treatment Twice a Day Treatment Plan Physical Therapy Treatment Plan Bed Mobility Training,Transfer Training,Gait Training, Therapeutic Exercise,Balance Retraining,Post Op Education, Discharge Planning,Hot or Cold Pack,Neuromuscular Re-ed, Coordination Retraining,Manual Therapy Recommendations To Nursing Amount of Assist Needed 1 Person Assist Discharge Recommendations PT Discharge Recommendations Home with Assistance
[2019-07-05 19:28] VITALS: BP 112/56; PULSE 54; RESP 18; TEMP 36.6; O2SAT 95
[2019-07-05] MEDS: ATORVASTATIN 20 MG TABLET 80 MG PO (21:04)
[2019-07-05 23:40] VITALS: BP 101/55; PULSE 66; RESP 16; TEMP 36.4; O2SAT 94
[2019-07-06] MEDS: KETOROLAC 30 MG/ML VIAL IV ×2 (00:08→06:25)
[2019-07-06 05:43] VITALS: BP 128/62; PULSE 59; RESP 16; TEMP 36.8; O2SAT 94
[2019-07-06 07:39] VITALS: BP 137/66; PULSE 58; RESP 18; TEMP 36.7; O2SAT 98
--- NOTE | 2019-07-06 08:01 | PC.NURSE ---
Addendum entered by Felipe Wooten R.N. 07/06/19 12:15: IV d/c'd intact. Instructions and belongings account for and sent with son. Pt up to w/c and escorted by this RN to car. Pt did well getting in the car and has a good plan for getting out of the car at home. Addendum entered by Felipe Wooten R.N. 07/06/19 11:15: HV drain removed per order by Rekha CUI. Lester. well. Pt cleared for d/c by PT, orders by Pa written. Pt readying for d/c. Son to come and assist with transport home. Discharge instructions given. Original Note: Pt alert and oriented, offers no overt c/o except not wanting to go to SNF. attentive at bedside. Discussed plan of care and Pt conerns. Discuused working withPT and plan for the day. Pt eager to go home. Dressing cdi. Pt continues with hemovac.
--- NOTE | 2019-07-06 09:20 | OT.IP.TRT ---
Current Diagnoses Unilateral primary osteoarthritis, left knee (07/04/19) Surgery Performed Operation Date: 07/04/19 07:45 Actual Procedures p Total Knee Arthroplasty(Left) - Carly Saeed MD Occupational Therapy Treatment Note M3 OT- IP Subjective and Pain Start: 07/05/19 16:06 Freq: Status: Active Protocol: Document 07/06/19 09:20 [facility] (Rec: 07/06/19 11:36 [facility] [id number]) OT- Subjective Occupational Therapy Visit Type Type Treatment Note Visit Start Time 09:20 Visit Stop Time 10:05 Total Visit Minutes 45 Occupational Therapy Visit Comments Patient Comments Pt agreeable to shower. Patient/Caregiver Goals To go home. OT Pain Assessment Pain When Pain Assessed At Rest Pain Present Pain Present Denied Pain M4 OT- IP ADL's Start: 07/05/19 16:06 Freq: Status: Active Protocol: Document 07/06/19 09:20 [facility] (Rec: 07/06/19 11:36 [facility] [id number]) OT ADL-Dressing General Eval Upper Body Dressing Ability Independent Lower Body Dressing Ability Standby Assistance Areas Needing Assistance Underpants/Brief,Pants/Shorts, Socks Assistive Devices Dressing Assistive Devices Long Handled Shoe Horn,Cover Stripper ,Sock Aid Comments OT Dressing Comments In was determined best to use sock aid to edmond for left knee as able to edmond sock on left foot however tends to twist his knee. Therefore best to use socks aid at this time for socks. OT ADL-Toileting General Evaluation Toileting Ability Standby Assistance OT ADL-Bathing Bathing Type Bathing Type Shower General Evaluation Bathing Ability Minimal Assistance Areas Needing Assistance Wash/Dry Back Devices Bathing Equipment Hand Held Shower Sprayer, Shower Chair with Arms,Grab Bars Comments OT Bathing Comments Pt just needing CGA and use of grab bars while standing to do pericare needs. Pt able to do most of his shower while sitting. Pt also needing assist for his back. M5 OT- IP IADL's Start: 07/05/19 16:06 Freq: Status: Active Protocol: Document 07/05/19 16:08 CGR (Rec: 07/05/19 16:27 CGR [id number]) OT-Instrumental Activities of Daily Living Deficits IADL Deficits Identified No Deficits Home Safety Awareness Awareness of Need for Assistance at Home Good Awareness Ability to Problem Solve Emergency Able to Problem Solve Situations Medication Management Medication Management No Deficits Identified Money Management Money Management No Deficits Identified Meal Preparation Meal Preparation No Deficits Identified In Class Special Education Teacher In Class Special Education Teacher No Deficits Identified Driving Driving Comments plans to drive short distances to therapy. Pt has family that will drive longer distances. M6 OT- IP Functional Cognition Start: 07/05/19 16:06 Freq: Status: Active Protocol: Document 07/06/19 09:20 [facility] (Rec: 07/06/19 12:50 [facility] [id number]) Cognitive Factors Limiting Selfcare Function Cognitive Ability Level of Alertness Alert Patient Orientation Name,Place,Situation Attention Span Ability Capable of Focused Attention, Capable of Sustained Attention Ability to Follow Commands Able to Follow One Step Commands with Increased Time Memory Description No Deficits Noted Safety Awareness No Deficits Noted Problem Solving Ability No deficits Noted Executive Function Ability No Deficits Noted Abstract Thinking Ability No Deficits Noted Cognitive Comments Cognitive Assessment Comments Pt at times a bit impulsive otherwise no cognitive deficits noted. M7 OT- IP Mobility and Balance Start: 07/05/19 16:06 Freq: Status: Active Protocol: Document 07/06/19 09:20 [facility] (Rec: 07/06/19 12:50 [facility] [id number]) OT-Transfer Assessment Sit to and From Stand Sit to and from Stand Standby Assistance Transfers Transfer Ability Standby Assistance Technique Transfer Destination Bed,Chair,Shower Stall,Toilet Devices Transfer Assistive Devices Gait Belt,Front Wheeled Walker OT- Gait Assessment Gait Gait Assistance Required: Standby Assistance Assistive Devices Assistive Device Gait Belt,Front Wheeled Walker Comments Gait Ability Comments Mobility around the room. M8 OT- IP Objective Assessments Start: 07/05/19 16:06 Freq: Status: Active Protocol: Document 07/05/19 16:08 CGR (Rec: 07/05/19 16:27 CGR [id number]) OT Gross Range of Motion Upper Extremity Range of Motion Assessment Within Functional Limits OT Strength Upper Extremity Strength Assessment Within Functional Limits Comments Strength Comments Grossly 4/5 OT- Coordination Assessment Upper Extremity Finger to Nose Test Within Functional Limits Finger Tapping Test Within Functional Limits OT-Muscle Tone Assessment Muscle Tone WNL Yes OT Sensation Assessment Comments Summary Comments Typical sensation. Edema Edema Absent M9 OT- IP Assessment and Plan Start: 07/05/19 16:06 Freq: Status: Active Protocol: Document 07/06/19 09:20 [facility] (Rec: 07/06/19 12:50 [facility] [email or web address]) OT Summary Assessment and Plan Summary Progress Towards Goals Progressing Toward Goals Assessment Summary Pt there for caregiver training and feels that she will be able to provide all set-up assist for pt and able to give him enough assist as he needs it. Pt mostly SBA for all needs at this time for ADL needs. Discharge Recommendations OT Discharge Recommendations Home with Assistance
[2019-07-06] MEDS: ACETAMINOPHEN 325 MG TABLET 975 MG PO (09:25)
[2019-07-06] MEDS: METOPROLOL IR 50 MG TABLET PO (09:25)
[2019-07-06] MEDS: FERROUS SULFATE 325 MG TABLET PO (09:26)
[2019-07-06] MEDS: ASPIRIN EC 81 MG TABLET PO (09:26)
[2019-07-06] MEDS: LISINOPRIL 5 MG TABLET PO (09:26)
[2019-07-06] MEDS: DOCUSATE 100 MG CAPSULE PO (09:26)
--- NOTE | 2019-07-06 09:41 | PM.DS.1 ---
History of Present Illness History of Present Illness Date Patient Seen: 07/06/19 Time Patient Seen: 09:41 Chief complaint: [id number] Narrative: Please see HPI previously recorded in chart. Discharge Providers Provider Date of admission: 07/04/19 05:47 Discharge Date: 07/06/19 Consults: 06/20/19 09:57 Consult to Anesthesiology Routine Comment: Consulting Provider: Anesthesiologist Reason for consultation: Surgeon requested re: Cardiac 07/04/19 06:00 Consult to Anesthesiology Routine Comment: Consulting Provider: Anesthesiologist Reason for consultation: Regional block for post operative pain control 07/04/19 11:45 Consult to Discharge Planning Routine Comment: Consult to Physical Therapy Evaluate & Treat Comment: Physician Instructions: postop TKA protocol Consult to Respiratory Therapy Evaluate & Treat Comment: Physician Instructions: Evaluate and treat 07/05/19 11:04 Consult to Occupational Therapy Evaluate & Treat Comment: left TKA Physician Instructions: Evaluate and treat Discharge provider: Suha Tolentino PA-C Summary Hospital Course Discharge Diagnosis: s/p left total knee arthroplasty Hospital Course: The patient has had progressively worsening left knee pain with radiographic changes consistent with arthritis. Non-operative management has failed and the patient has requested total knee replacement. The risks, benefits and alternatives to surgery were discussed with the patient prior to proceeding. Risks discussed included, but were not limited to, failure to relieve pain, stiffness, infection, nerve damage, deep venous thrombosis, pulmonary embolism, stroke, coma, heart attack, permanent paralysis and , as well as the potential need for eventual revision of the prosthetic. After obtaining informed consent the patient was taken to the operating room where he underwent left total knee arthroplasty with Dr. Saeed which he tolerated well without complications. He was then taken to the acute care floor where he has been progressing well post operatively. His pain was initially not well controlled so Dilaudid 4mg for severe pain and 2mg for moderate was added. IV Ketorolac Q6hrs was added for POD#1 and then discontinued. After this pain control has greatly improved. He has been progressing well with physical therapy and completed stair training. There was some concern about his home situation as his has some physical limitation, however their son will also be available as needed. He will be discharged with supply of Dilaudid 2mg for pain control. ASA 81mg BID for DVT prophylaxis. Follow up as scheduled outpatient. Status at Discharge Cognitive/behavioral status at discharge: oriented Functional status at discharge: uses cane/walker Overall status at discharge: patient is progressing back to baseline Exam Vital Signs (past 8 hours): - 07/06/19 05:43 07/06/19 07:39 Temperature 98.2 F 98.0 F Pulse Rate 59 L 58 L Respiratory Rate 16 18 Blood Pressure 128/62 137/66 Pulse Oximetry 94 98 Fraction of Inspired Oxygen 21 Oxygen Delivery Method Room Air Oxygen Flow Rate 0 Narrative Exam Narrative: 73 year old male resting comfortably in bed. Alert and oriented in no acute distress. Dressing in place over left knee is CDI. Patient able to flex/extend the hip and ankle. Calves soft, compressible. Sensation intact to light touch in extremity. Palpable pedal pulse. Objective Labs Result Diagrams: 07/05/19 06:48 Discharge Plan Discharge Plan Patient Disposition: Home Discharge Med Rec/Prescriptions Prescriptions: New acetaminophen 325 mg Tablet 975 mg PO TID Qty: 40 RF: 0 aspirin 81 mg Tablet,Delayed Release (Dr/Ec) 81 mg PO BID Qty: 40 RF: 0 hydromorphone 2 mg Tablet 2 mg PO Q4-6H PRN (Reason: Pain, Moderate (4-6)) Qty: 40 RF: 0 docusate sodium [DOK] 100 mg Capsule 100 mg PO BID Qty: 40 RF: 0 Continued atorvastatin 80 mg Tablet 80 mg PO BEDTIME RF: 0 nizatidine 150 mg Capsule 150 mg PO QAM RF: 0 acetaminophen 500 mg Tablet 1,000 mg PO BID RF: 0 ferrous sulfate [iron] 325 mg (65 mg iron) Tablet 325 mg PO DAILY RF: 0 metoprolol tartrate 50 mg Tablet 50 mg PO BID RF: 0 nitroglycerin 0.4 mg Tablet, Sublingual 0.4 mg SUBLINGUAL Q5-15M PRN (Reason: Chest Pain) RF: 0 lisinopril 5 mg Tablet 5 mg PO DAILY RF: 0 verapamil 80 mg Tablet 80 mg PO PRN PRN (Reason: PSVT) RF: 0 Discontinued aspirin [Aspir-81] 81 mg Tablet,Delayed Release (Dr/Ec) 81 mg PO DAILY RF: 0 Follow up/Referrals: Carly Saeed MD [Physician] - Provider Discharge Instructions Diet: Diet as Tolerated Activity: Weigh bear as tolerated. Please use walker or cane for support. Cold/Heat Therapy: Ice packs as needed. Other treatments: Please refer to [facility] guide. Skin/Wound/Dressing Care Report to your healthcare provider any signs of infection, such as:: chills, fever, night sweats, increased pain, unusual drainage and unusual redness Dressing: Please leave Aquacel dressing in place. This will be removed at 2 week post op visit. If this becomes saturated please call the office. Visit Report/Discharge Packet Instructions: DI for Knee Replacement, Hydromorphone
--- NOTE | 2019-07-06 10:35 | PT.IPTN ---
Current Diagnoses Unilateral primary osteoarthritis, left knee (07/04/19) Surgery Performed Operation Date: 07/04/19 07:45 Actual Procedures p Total Knee Arthroplasty(Left) - Carly Saeed MD Physical Therapy Treatment Note M2 PT-IP Current Condition Start: 07/04/19 12:00 Freq: NEEDED Status: Discharge Protocol: Document 07/04/19 14:35 AW (Rec: 07/04/19 15:04 AW [id number]) Physical Therapy Current Condition Current Condition Evaluation Date 07/04/19 Treatment Diagnosis s/p L TKA, difficulty in walking Onset Date 07/04/19 Weight Bearing Status Weight Bearing Status Weight Bear as Tolerated Allowed Weight Bearing Amount (enter % WBAT LLE with walker or #) (%) M3 PT-IP Subjective Start: 07/04/19 12:00 Freq: NEEDED Status: Discharge Protocol: Document 07/06/19 10:35 GGD (Rec: 07/06/19 12:31 GGD [id number]) Subjective Physical Therapy Visit Type Type Treatment Note Visit Start Time 10:10 Visit Stop Time 10:35 Total Visit Minutes 25 Number of TRACK SWEEPER Visits 2 Physical Therapy Visit Comments Patient Comments Pt states he feels ready to go home. Therapy Pain Assessment Pain When Pain Assessed At Rest Pain Present Pain Present Pain Reported Location Left Knee Intensity 1 Scale Used Numeric (1 - 10) M4 PT-IP Mobility and Gait Start: 07/04/19 12:00 Freq: NEEDED Status: Discharge Protocol: Document 07/06/19 10:35 GGD (Rec: 07/06/19 12:31 GGD [id number]) PT-Bed Mobility Assessment Supine to Sit Supine to Sit Standby Assistance Sit to Supine Sit to Supine Contact Guard Assistance Scooting Scooting to Edge of Bed Standby Assistance Scooting Up and Down in Bed Standby Assistance PT-Transfer Assessment Sit to and From Stand Sit to and from Stand Standby Assistance,Use of Upper Extremities Equipment Transfer Assistive Device Gait Belt,Front Wheeled Walker Orthotic/Prosthetic Devices or Brace: No Transfers Transfer Destination Bed Transfer Ability Level of Assist Standby Assistance,Use of Upper Extremities Gait Assessment Gait Gait Assistance Required: Standby Assistance Distance (Feet) 120 Able to Maintain Weight Bearing Status Yes During Gait Assistive Devices Assistive Device Gait Belt,Front Wheeled Walker Orthotic/Prosthetic Devices or Brace: No Gait Deviations General Gait Pattern Antalgic,Decreased Stride Length,Decreased Feet Clearance Factors Limiting Gait Function Factors Limiting Gait Function Decreased Activity Tolerance, Decreased Strength,Pain,Poor Balance,Poor Safety Awareness Stair Climbing Assessment Evaluation Level of Assist On Stairs Contact Guard Assistance Devices Stair Climbing Assistive Devices Left Railing Technique/Endurance Stair Climbing Direction Ascend and Descend Stair Climbing Technique Step to Step Number of Steps Climbed 3 Stair Climbing Set # Repetitions (reps) 2 Comments Stair Climbing Comments Pt used left rail to ascending stairs and one rail to descend M5 PT-IP Objective Assessments Start: 07/04/19 12:00 Freq: NEEDED Status: Discharge Protocol: Document 07/04/19 14:35 AW (Rec: 07/04/19 15:04 AW [id number]) Orientation Orientation/Cognition Level of Alertness Alert Orientation Name,Date,Place,Situation Language Function Ability No Deficits Noted Safety Awareness Understands Safety Issues Memory Description No Deficits Noted Gross Range of Motion Upper Extremity ROM Assessment Within Functional Limits Lower Extremity ROM Assessment Left Impaired Strength Upper Extremity Strength Assessment Within Functional Limits Lower Extremity Strength Assessment Left Impaired Coordination Assessment Gross Coordination Gross Coordination WNL Sensation Assessment Sensation Gross Sensation WNL Comments Sensation Comments Pt identified light touch ochoa points on both LE's with no difference side to side Muscle Tone Muscle Tone WNL Yes M6 PT-IP Treatment Start: 07/04/19 12:00 Freq: NEEDED Status: Discharge Protocol: Document 07/06/19 10:35 GGD (Rec: 07/06/19 12:31 GGD [id number]) Physical Therapy Treatment Exercises Exercises Ankle Pumps,Quad Sets,Heel Slides,Straight Leg Raises, Seated Knee Flexion/Extension M7 PT-IP Assessment and Plan Start: 07/04/19 12:00 Freq: NEEDED Status: Discharge Protocol: Document 07/06/19 10:35 GGD (Rec: 07/06/19 12:31 GGD [id number]) PT Summary Assessment and Plan Summary Assessment Summary Pt improving with mobility. He was safe and stable with stair mobility with on rail. He is safe for home D/C when he is medically stable. Frequency of Treatment Frequency Of Treatment Twice a Day Treatment Plan Physical Therapy Treatment Plan Bed Mobility Training,Transfer Training,Gait Training, Therapeutic Exercise,Balance Retraining,Post Op Education, Discharge Planning,Hot or Cold Pack,Neuromuscular Re-ed, Coordination Retraining,Manual Therapy Recommendations To Nursing Amount of Assist Needed 1 Person Assist Discharge Recommendations PT Discharge Recommendations Home with Assistance, Outpatient PT
== END 2019-07-06 12:10 | disposition home or self-care (01) | DRG 470 ==
PROVIDERS: Admitting Provider Orthopaedic Surgery; Visit Provider Orthopaedic Surgery
PROC: 0SRD0JZ Replacement of Left Knee Joint with Synthetic Substitute, Open Approach (ICD-10-PCS; CPT 27447; principal; 2019-07-04 07:45)
DX: M17.12 Unilateral primary osteoarthritis, left knee (principal); I25.10 Atherosclerotic heart disease of native coronary artery without angina pectoris; I10 Essential (primary) hypertension; K21.9 Gastro-esophageal reflux disease without esophagitis; R11.2 Nausea with vomiting, unspecified; Z87.891 Personal history of nicotine dependence; Z95.1 Presence of aortocoronary bypass graft
CPT/HCPCS: 36415; 73560; 85014; 85018; 94762; 97110; 97116; 97161; 97165; 97530; 97535; C1776; C9290; J0690; J1885; J2250; J2405; J2704; J3010

== ENCOUNTER → 2024-04-10 06:53 | Outpatient (CLI) | payer MEDICARE, OTHER, SELFPAY ==
[2019-07-04 12:03] VITALS: BMI 32.0
--- NOTE | 2024-04-10 06:54 | DI.MRI.S_ITS ---
PROCEDURE: MR ANGIO NECK W CON INDICATIONS: PULSATILE TINNITUS,RIGHT EAR TECHNIQUE: Coronal dynamic MRA after the administration of contrast in the arterial and venous phases, with rotating 3-dimensional maximum intensity projection (MIP) reformats constructed from subtraction images. COMPARISON: None. FINDINGS: Image quality: Excellent. Carotid system: Great vessels demonstrate a conventional anatomy as they arise from the aortic arch. The origins of the common carotid arteries appear normal. The calibers and courses of the common carotid arteries are likewise normal. The carotid bifurcations appear normal bilaterally. The internal carotid arteries are widely patent up to the [place]. Posterior circulation: The origins of the vertebral arteries are unremarkable. The more superior portions of the vertebral arteries demonstrate normal course and caliber. Vertebral arteries join to form a normal appearing basilar artery. Miscellaneous: Subclavian arteries are patent throughout. Pre-contrast images through the neck demonstrate no soft tissue abnormalities. IMPRESSION: Normal MR angiogram of the neck Any quantitative measurements of stenosis were performed using NASCET criteria. Approved by: Nikolay Cerrato M.D. on 04/10/2024 at 12:41
--- NOTE | 2024-04-10 06:54 | DI.MRI.S_ITS ---
PROCEDURE: MR ANGIO HEAD WO CON INDICATIONS: PULSATILE TINNITUS,RIGHT EAR TECHNIQUE: Noncontrast axial 3-D [id number] MR angiogram, with 3-dimensional maximum intensity projection (MIP) reformats of the internal carotid arteries and posterior circulation then performed. COMPARISON: None. FINDINGS: Image quality: Excellent. Anterior circulation: Intracranial internal carotid arteries demonstrate normal size and intraluminal flow signal. The flow within the paired anterior cerebral arteries is normal and symmetric. The flow within the middle cerebral arteries is normal and symmetric. The anterior communicating artery is seen. No stenoses, occlusions, or aneurysms. Posterior circulation: Visualized portions of the vertebral arteries demonstrate normal caliber, and join to form a normal appearing basilar artery. The flow within the posterior cerebral arteries is normal and symmetric. No stenoses, occlusions, or aneurysms. IMPRESSION: Unremarkable MR angiogram of the brain Approved by: Nikolay Cerrato M.D. on 04/10/2024 at 12:39
== END ==
PROVIDERS: Referring Provider Otolaryngology; Visit Provider Otolaryngology
DX: H93.A1 Pulsatile tinnitus, right ear (principal)
CPT/HCPCS: 70544; 70548; A9579